=== PATIENT | female | born 1935 | race African-American/Black ===

== ENCOUNTER 2017-01-08 11:18 | Emergency (ER) | payer OTHER ==
[2017-01-08 11:31] VITALS: BP 156/90; PULSE 92; TEMP 98; BMI 32.4
--- NOTE | 2017-01-08 12:28 | PDOC ---
History of Present Illness - General Chief Complaint: Rash Stated Complaint: ALLERGIC REACTION Time Seen by Provider: 01/08/17 12:10 History Source: Patient Exam Limitations: No Limitations - History of Present Illness Initial Comments: 01/08/17 12:18 Patient is a 81 y/o female with history of HTN. Presents to to the ER with pruritic lesion to the posterior neck. Noticed yesterday that she had the pruritic lesions to the posterior neck. Was concerned that she was having an allergic reaction to a necklace that she recently purchased. No respiratory difficulty, no difficulty swallowing. Past Medical History: Denies. Allergies: PCN Medications: None Family History: Non-contributory Social History: Denies smoking, alcohol use, or IVDU Review of Systems GENERAL/CONSTITUTIONAL: No fever or chills. No weakness. No weight change. HEAD, EYES, EARS, NOSE AND THROAT: No change in vision. No ear pain or discharge. No sore throat. CARDIOVASCULAR: No chest pain or shortness of breath. RESPIRATORY: No cough, wheezing, or hemoptysis. GASTROINTESTINAL: No nausea, vomiting, diarrhea or constipation. No rectal bleeding. GENITOURINARY: No dysuria, frequency, or change in urination. MUSCULOSKELETAL: No joint or muscle swelling or pain. No neck or back pain. SKIN : No rash or easy bruising. Pruritic raised erythematous areas 3 to posterior neck NEUROLOGIC: No headache, vertigo, loss of consciousness, or loss of sensation. PSYCHIATRIC: No depression or anxiety. ENDOCRINE: No increased thirst. No abnormal weight change. HEMATOLOGIC/LYMPHATIC: No anemia, easy bleeding, or history of blood clots. ALLERGIC/IMMUNOLOGIC: No hives or skin allergy. No latex allergy. Physical Exam: GENERAL: The patient is awake, alert, and fully oriented, in no acute distress. EYES: Pupils equal, round and reactive to light, extraocular movements intact, sclera anicteric, conjunctiva clear. ENT: Ears normal, nares patent, oropharynx clear without exudates. Moist mucous membranes. No uvula deviation NECK: Normal range of motion, supple without lymphadenopathy, JVD, or masses. LUNGS: Breath sounds equal, clear to auscultation bilaterally. No wheezes, and no crackles. HEART: Regular rate and rhythm, normal S1 and S2 without murmur, rub or gallop. ABDOMEN: Soft, nontender, normoactive bowel sounds. No guarding, no rebound. No masses. No bruising or abrasions MUSCULOSKELETAL: Normal range of motion, no edema. No clubbing or cyanosis. No cords, erythema, or tenderness. No CVA Tenderness with fist. NEUROLOGICAL: Cranial nerves II through XII grossly intact. Normal speech, normal gait. SKIN: 3 raised pruritic areas to posterior neck with central punctum consistent with bug bite, no stingers are present. No surrounding induration. No lymphadenopathy. There is no rash circumferentially around. Past History - Past Medical History Allergies/Adverse Reactions: Allergies Allergy/AdvReac Type Severity Reaction Status Date / Time Penicillins Allergy Swelling Verified 01/08/17 11:27 Home Medications: Ambulatory Orders Cholecalciferol (Vitamin D3) [Vitamin D3] 1,000 unit PO DAILY 12/14/15 Hydrochlorothiazide [Hctz -] 0 mg PO DAILY 12/14/15 Levothyroxine [Synthroid -] 75 mcg PO DAILY 12/14/15 Metformin HCl [Metformin HCl ER] 1,000 mg PO DAILY 12/14/15 Hydrocortisone 2.5% Lotion [Hytone 2.5% Lotion -] 1 applic TP BID #1 bottle Diabetes: Yes HTN: Yes Hypercholesterolemia: Yes Thyroid Disease: Yes - Psycho/Social/Smoking Cessation Hx Anxiety: No Suicidal Ideation: No Smoking Status: No Smoking History: Former smoker Have you smoked in the past 12 months: No Number of Cigarettes Smoked Daily: 0 If you are a former smoker, when did you quit?: 20 years ago Information on smoking cessation initiated: No *Physical Exam - Vital Signs Last Vital Signs Temp Pulse Resp BP Pulse Ox 98 F 92 H 17 156/90 96 01/08/17 11:28 01/08/17 11:28 01/08/17 11:28 01/08/17 11:28 01/08/17 11:28 Medical Decision Making - Medical Decision Making 01/08/17 12:28 A/P: Patient with bug bites posterior neck with the see patient home on hydrocortisone cream. Follow-up if any increased redness swelling or signs of infection. *DC/Admit/Observation/Transfer Diagnosis at time of Disposition: Bug bite Qualifiers: Encounter type: initial encounter Qualified Code(s): W57.XXXA - Bitten or stung by nonvenomous insect and other nonvenomous arthropods, initial encounter - Discharge Dispostion Disposition: HOME Condition at time of disposition: Good Admit: No - Prescriptions Prescriptions: Hydrocortisone 2.5% Lotion [Hytone 2.5% Lotion -] 1 applic TP BID #1 bottle - Referrals Referrals: Dany James MD, MD [Primary Care Provider] - - Patient Instructions Additional Instructions: Cool compresses to area Lotion as prescribed if any increased redness swelling or signs of infection including fever please return immediately to ER - Post Discharge Activity
== END 2017-01-08 12:42 | disposition home or self-care (01) ==
LOC: JERFT 11:18
DX: S10.86XA Insect bite of other specified part of neck, initial encounter (principal); W57.XXXA Bitten or stung by nonvenomous insect and other nonvenomous arthropods, initial encounter; Y93.89 Activity, other specified; Y92.89 Other specified places as the place of occurrence of the external cause; I10 Essential (primary) hypertension; E11.9 Type 2 diabetes mellitus without complications; Z79.84 Long term (current) use of oral hypoglycemic drugs; E78.00 Pure hypercholesterolemia, unspecified; E03.9 Hypothyroidism, unspecified
CPT/HCPCS: 99281-25